=== PATIENT | male | born 1950 | race Caucasian/White ===

== ENCOUNTER 2022-08-02 08:15 | Outpatient (RCR) | payer MEDICARE, BC, SELFPAY | END 2022-11-18 15:03 | disposition home or self-care (01) | PROVIDERS: Visit Provider Family Medicine | DX: M76.899 Other specified enthesopathies of unspecified lower limb, excluding foot (principal); Z51.89 Encounter for other specified aftercare | CPT/HCPCS: 97110; 97140; 97161 ==